=== PATIENT | male | born 1945 | race Caucasian/White ===

== ENCOUNTER 2022-07-31 11:42 | Emergency (ER) | payer MEDICARE ==
[~2022-07-31 11:42] MED LIST: Iopamidol 300 61% 100 ML VIAL FS ONE
[2022-07-31] MEDS ORDERED: Morphine 4 MG/ML VIAL ONE (14:07)
[2022-07-31] MEDS ORDERED: Ondansetron PF 4 MG/2 ML Vial ONE (14:07)
[2022-07-31 14:29] LABS: Bilirubin Neg (Negative); Blood, Urine 25 (Negative); Clarity Clear (Clear); Glucose, Urine (Dipstick) 250 mg/dL (Negative); Ketone, Urine Negative (Negative); Leukocyte Negative (Negative); Nitrite Negative (Negative); Protein, Urine (Dipstick) 100 mg/dl (Neg-Trace); Urobilinogen Normal mg/dL (Less than 2)
[2022-07-31 14:33] LABS: ALT (SGPT) 59 U/L (8-55); AST (SGOT) 45 U/L (5-34); Albumin 4.4 g/dL (3.4-4.8); Alkaline Phosphatase 55 U/L (40-110); Anion Gap 15 mmol/L (10-20); BUN (Urea Nitrogen) 20 mg/dL (8.4-25.7); Bilirubin, Total 0.5 mg/dL (0.2-1.2); Calc. Creatinine Clearance 0 mL/min (70-130); Calcium 9.3 mg/dL (7.8-10.44); Carbon Dioxide 23 mmol/L (23-31); Chloride 102 mmol/L (98-107); Estimated GFR 45; Globulin 3.1 g/dL (2.4-3.5); Glucose 260 mg/dL (83-110); Lipase 13 U/L (8-78); Potassium 4.2 mmol/L (3.5-5.1); Protein, Total 7.5 g/dL (5.8-8.1); Sodium 136 mmol/L (136-145)
[2022-07-31 14:40] LABS: Hemoglobin 10.9 g/dL (13.5-17.5); Mean Corpuscular HGB CONC 32.5 g/dL (32.0-36.0); Mean Corpuscular Volume 82.9 fl (81.2-95.1); Mean Platelet Volume 9.4 fl (7.4-10.4); Platelet Count 129 10x3/uL (150-450); RBC Distribution Width 19.3 % (11.5-14.5); Red Blood Cell (RBC) Count 4.04 10x6/uL (4.32-5.72); White Blood Cell (WBC) Count 13.9 10x3/uL (3.5-10.5)
[2022-07-31 14:50] LABS: Bacteria/HPF 2+ HPF (None Seen); RBC/HPF 0-3 HPF (0-3); Squamous Epithelial 0-3 HPF (0-3); WBC/HPF 0-3 HPF (0-3)
[2022-07-31 14:57] LABS: Band 18 % (5-11); Eosinophils 6 % (0-10); Lymphocytes 26 % (21-51); Monocytes 11 % (0-10); Nucleated RBC 10 % (0); Reactive Lymphocytes 5 % (0-10)
[2022-07-31 15:02] LABS: Reflex for Review?? YES
[2022-07-31 15:03] LABS: Polychromasia SLIGHT = 2-3 cells (100X) (0-2/hpf)
[2022-07-31 15:05] LABS: Anisocytosis SLIGHT = 6-15 cells (100X) (0-5/hpf)
[2022-07-31 15:06] LABS: Microcytosis SLIGHT = 6-15 cells (100X) (0-5/hpf); Platelet Morphology Comment Appears Decreased
[2022-07-31 15:14] LABS: MDiff Complete? YES
== END 2022-07-31 17:10 | disposition home or self-care (01) ==
LOC: CSHERS 11:42
DX: A09 Infectious gastroenteritis and colitis, unspecified (principal); E11.9 Type 2 diabetes mellitus without complications; E78.5 Hyperlipidemia, unspecified; I10 Essential (primary) hypertension; J44.9 Chronic obstructive pulmonary disease, unspecified
CPT/HCPCS: 71045; 74177; 80053; 81003; 81015; 83690; 85025; 85060; 96374; 96375; J2270; J2405; Q9967

== ENCOUNTER 2023-05-19 12:40 | Emergency (ER) | payer MEDICARE ==
[~2023-05-19 12:40] MED LIST changes: -Iopamidol 300 61% 100 ML VIAL FS ONE; +Iopamidol 370 76% 100 ML VIAL ONE
[2023-05-19 13:14] LABS: Hematocrit 36.2 % (38.8-50.0); Hemoglobin 11.7 g/dL (13.5-17.5); MDiff Complete? YES; Mean Corpuscular HGB CONC 32.3 g/dL (32.0-36.0); Mean Corpuscular Hemoglobin 26.1 pg (27.0-33.0); Mean Corpuscular Volume 80.6 fl (81.2-95.1); Mean Platelet Volume 9.4 fl (7.4-10.4); Platelet Count 160 10x3/uL (150-450); Red Blood Cell (RBC) Count 4.49 10x6/uL (4.32-5.72); White Blood Cell (WBC) Count 14.8 10x3/uL (3.5-10.5)
[2023-05-19 13:29] LABS: Anion Gap 15 mmol/L (10-20); BUN (Urea Nitrogen) 23 mg/dL (8.4-25.7); Calc. Creatinine Clearance 0 mL/min (70-130); Calcium 8.6 mg/dL (7.8-10.44); Carbon Dioxide 22 mmol/L (23-31); Chloride 105 mmol/L (98-107); Estimated GFR 44; Glucose 175 mg/dL (83-110); Potassium 4.4 mmol/L (3.5-5.1); Sodium 138 mmol/L (136-145)
[2023-05-19 14:05] LABS: Band 3 % (5-11); Eosinophils 2 % (0-10); Lymphocytes 27 % (21-51); Metamyelocyte 4 % (0-0); Monocytes 5 % (0-10); Neutrophil 37 % (42-75); Nucleated RBC (Manual Ct) 4 % (0); Reactive Lymphocytes 22 % (0-10)
[2023-05-19 14:09] LABS: Anisocytosis SLIGHT = 6-15 cells (100X) (0-5/hpf); Microcytosis SLIGHT = 6-15 cells (100X) (0-5/hpf); Polychromasia MODERATE = 3-4 cells (100X) (0-2/hpf); Spherocytes SLIGHT = 1-5 cells (100X) (None Seen)
[2023-05-19 14:10] LABS: Platelet Adequacy Comment Appears Adequate
[2023-05-19 15:11] LABS: Troponin I 0.011 ng/mL (< 0.028)
== END 2023-05-19 16:08 | disposition home or self-care (01) ==
LOC: CSHERS 12:40
DX: J44.1 Chronic obstructive pulmonary disease with (acute) exacerbation (principal); E11.9 Type 2 diabetes mellitus without complications; E78.5 Hyperlipidemia, unspecified; I10 Essential (primary) hypertension; Z86.73 Personal history of transient ischemic attack (TIA), and cerebral infarction without residual deficits
CPT/HCPCS: 71275; 80048; 83880; 84484; 85025; 85379; 93005; J7611; Q9967